=== PATIENT | female | born 1985 | race American Indian/Alaskan Native ===

== ENCOUNTER 2016-12-16 10:42 | Emergency (ER) | payer SELFPAY ==
[2016-12-16 11:28] VITALS: BP 141/101
[2016-12-16 12:16] LABS: Bilirubin,Urine NEG (Negative); Blood,Urine NEG (Negative); Ketones,Urine NEG (Negative); Leukocyte Esterase,Urine NEG (Negative); Mucus,Urine 2+ /HPF; Nitrite,Urine NEG (Negative); Protein,Urine <15 mg/dL mg/dL (Negative); Urobilinogen,Urine < 2.0 mg/dL (<2.0)
[2016-12-16 12:35] LABS: Basophils % (Auto) 0.7 % (0.0-1.8); Hematocrit 35.7 % (30.3-42.9); Hemoglobin 11.8 gm/dl (10.1-14.3); Mean Corpuscular HGB Conc 33 % (30-34); Mean Corpuscular Hemoglobin 30 pg (28-32); Mean Corpuscular Volume 90 fl (79-97); Platelet Count 210 K/mm3 (140-440); Red Blood Count 3.98 M/mm3 (3.65-5.03); Red Cell Distribution Width 14.2 % (13.2-15.2); White Blood Count 4.8 K/mm3 (4.5-11.0)
[2016-12-16 12:39] LABS: Alanine Aminotransferase 17 units/L (7-56); Albumin 4.2 g/dL (3.9-5); Albumin/Globulin Ratio 1.4 %; Alkaline Phosphatase 46 units/L (35-129); Anion Gap 16 mmol/L; BUN/Creatinine Ratio 21.42; Bilirubin,Total 0.3 mg/dL (0.1-1.2); Blood Urea Nitrogen 15 mg/dL (7-17); Calcium 8.7 mg/dL (8.4-10.2); Carbon Dioxide 26 mmol/L (22-30); Chloride 101.7 mmol/L (98-107); Glucose 91 mg/dL (65-100); Lipase 18 units/L (13-60); Potassium 3.6 mmol/L (3.6-5.0); Sodium 140 mmol/L (137-145); Total Protein 7.1 g/dL (6.3-8.2)
== END 2016-12-16 20:15 | disposition left against medical advice (07) ==
LOC: ED 10:42
DX: R10.9 Unspecified abdominal pain (principal); Z53.21 Procedure and treatment not carried out due to patient leaving prior to being seen by health care provider
CPT/HCPCS: 36415; 80053; 81001; 83690; 85025

== ENCOUNTER 2017-10-18 13:27 | Outpatient (CLI) | payer MEDICAID, OTHER ==
[2017-10-18 14:12] VITALS: BP 123/83
[2017-10-18] MEDS ORDERED: LACTATED RINGERS 500 ML IV ONE (16:37)
== END 2017-10-18 18:55 | disposition home or self-care (01) ==
LOC: TRG 13:27
PROVIDERS: ATTEND Obstetrics & Gynecology
DX: O47.1 False labor at or after 37 completed weeks of gestation (principal); Z3A.37 37 weeks gestation of pregnancy
CPT/HCPCS: 59025

== ENCOUNTER 2017-10-28 02:21 | Outpatient (CLI) | payer MEDICAID ==
[2017-10-28 02:35] VITALS: BP 122/73
== END 2017-10-28 03:00 | disposition home or self-care (01) ==
LOC: TRG 02:21
PROVIDERS: ATTEND Obstetrics & Gynecology
DX: O62.9 Abnormality of forces of labor, unspecified (principal); Z3A.38 38 weeks gestation of pregnancy
CPT/HCPCS: 59025

== ENCOUNTER 2017-11-04 01:40 | Outpatient (CLI) | payer MEDICAID ==
[2017-11-04 12:41] VITALS: BP 119/74
== END 2017-11-04 03:48 | disposition home or self-care (01) ==
LOC: TRG 01:40
PROVIDERS: ATTEND Obstetrics & Gynecology
DX: O47.1 False labor at or after 37 completed weeks of gestation (principal); Z3A.39 39 weeks gestation of pregnancy
CPT/HCPCS: 59025

== ENCOUNTER 2017-11-15 04:44 | Inpatient (IN) | payer MEDICAID, OTHER ==
[2017-11-15] MEDS ORDERED: PITOCin/NS 20 UNIT/1000ML DRIP 20,000 MILLIUNITS/1,000 ML BAG IV ONE (04:59)
[2017-11-15] MEDS ORDERED: NORMOSOL-R PH 7.4 1,000 ML IV ONE (04:59)
[2017-11-15] MEDS ORDERED: SUBLIMAZE ONE (05:24)
[2017-11-15] MEDS ORDERED: XYLOCAINE 2% INFILTRATI ONE (05:45)
[2017-11-15] MEDS ORDERED: ePHEDrine SULFATE IV PRN (05:45)
[2017-11-15] MEDS ORDERED: ZOFRAN IV PRN ×2 (05:45→06:13)
[2017-11-15] MEDS ORDERED: SUBLIMAZE IV PRN (05:45)
[2017-11-15] MEDS ORDERED: STADOL IV PRN (05:45)
[2017-11-15] MEDS ORDERED: MINERAL OIL PO PRN (05:45)
[2017-11-15] MEDS ORDERED: BRETHINE IVP PRN (05:45)
[2017-11-15] MEDS ORDERED: BRETHINE SUB-Q PRN (05:45)
[2017-11-15] MEDS ORDERED: NARCAN 0.4 MG/1 ML IV PRN (05:45)
[2017-11-15 05:55] LABS: Mean Corpuscular HGB Conc 33 % (30-34); Mean Corpuscular Hemoglobin 30 pg (28-32); Mean Corpuscular Volume 91 fl (79-97); Platelet Count 201 K/mm3 (140-440); Red Blood Count 3.63 M/mm3 (3.65-5.03); Red Cell Distribution Width 13.8 % (13.2-15.2)
--- NOTE | 2017-11-15 05:55 | History and Physical Report ---
History of Present Illness Date of examination: 11/15/17 Date of admission: 11/15/17 05:06 Chief complaint: Labor History of present illness: Pt is a 31yo BF EDC 11/06/17; EGA 41 2/7 weeks presents to L&D complaining of RUC's q 3-4 mins. She received care at [facility] since 20 weeks and followed by [facility] due to Obesity, course has been unremarkable. records are available and GBS is Negative. Past History Past Medical History: no pertinent history Past Surgical History: no surgical history Social history: no significant social history, - Obstetrical History Expected Date of Delivery: 11/06/17 Actual Gestation: 41 Week(s) 2 Day(s) : 3 Medications and Allergies Allergies Allergy/AdvReac Type Severity Reaction Status Date / Time No Known Allergies Allergy Verified 05/21/14 13:05 Home Medications Medication Instructions Recorded Confirmed Last Taken Type Pnv,Calcium 72/Iron/Folic Acid 1 tab PO DAILY 12/13/15 12/13/15 12/11/15 10:00 History [Pnv Plus Multivit Tab] HYDROcodone/APAP 5-325 [[place] 2 each PO Q6H PRN #10 tablet 12/14/15 Unknown Rx 5-325 mg TAB] Ibuprofen [Motrin 600 MG tab] 600 mg PO Q6H PRN #30 tablet 12/14/15 Unknown Rx Active Meds: Active Medications Butorphanol Tartrate (Stadol) 2 mg IV Q2H PRN PRN Reason: Pain , Severe (7-10) Ephedrine Sulfate (Ephedrine Sulfate) 10 mg IV Q2M PRN PRN Reason: Hypotension Fentanyl (Sublimaze) 100 mcg IV Q2H PRN PRN Reason: Labor Pain Parenteral Electrolytes (Normosol-R Ph 7.4) 1,000 mls @ 125 mls/hr IV DIRECT SANDRA Oxytocin/Sodium Chloride (Pitocin/Ns 20 Unit/1000ml Drip) 20 units in 1,000 mls @ 125 mls/hr IV DIRECT SANDRA Oxytocin/Sodium Chloride (Pitocin/Ns 30 Unit/500ml) 30 units in 500 mls @ 1 mls /hr IV TITR SANDRA; Protocol Lidocaine (Xylocaine 2%) 20 ml INFILTRATI ONCE ONE Stop: 11/15/17 05:46 Mineral Oil (Mineral Oil) 30 ml PO QHS PRN PRN Reason: Constipation Naloxone HCl (Narcan 0.4 Mg/1 Ml) 0.1 mg IV Q2MIN PRN PRN Reason: Res Rate </= 8 or 02 SAT < 92% Ondansetron HCl (Zofran) 4 mg IV Q8H PRN PRN Reason: Nausea And Vomiting Terbutaline Sulfate (Brethine) 0.25 mg SUB-Q ONCE PRN PRN Reason: Hyperstimulation/Hypertonicity Terbutaline Sulfate (Brethine) 0.25 mg IVP ONCE PRN PRN Reason: Hyperstimulation/Hypertonicity Review of Systems All systems: negative - Vital Signs Vital signs: Vital Signs Temp Resp 97.7 F 24 11/15/17 05:33 11/15/17 05:33 Temp Pulse Resp BP Pulse Ox 97.7 F 11/15/17 05:33 11/15/17 05:33 - Physical Exam Breasts: Positive: deferred Cardiovascular: Regular rate Lungs: Positive: Clear to auscultation Abdomen: Positive: normal appearance Genitourinary (Female): Positive: normal external genitalia Vagina: Positive: normal moisture Uterus: Positive: enlarged Extremities: Positive: normal - Obstetrical FHR: category 1 Uterine Contraction Monitor Mode: External Cervical Dilatation: 10 Cervical Effacement Percentage: 100 station: +2 Uterine Contraction Pattern: Regular Uterine Tone Measurement Phase: Contraction Uterine Contraction Intensity: Strong/Firm Results Result Diagrams: 11/15/17 05:35 All other labs normal. Assessment and Plan - Patient Problems (1) 41 weeks gestation of Onset Date: 11/15/17 Current Visit: Yes Status: Acute Plan to address problem: A: IUP @ 41 2/7 weeks in labor P: Admit to L&D for expectant vaginal delivery (2) Active labor at term Onset Date: 11/15/17 Current Visit: No Status: Acute
[2017-11-15] MEDS ORDERED: NORMOSOL-R PH 7.4 1,000 ML IV SCH (06:00)
[2017-11-15] MEDS ORDERED: PITOCin/NS 20 UNIT/1000ML DRIP 20 UNITS/1,000 ML BAG IV SCH ×2 (06:00→07:00)
[2017-11-15] MEDS ORDERED: PITOCin/NS 30 UNIT/500ML 30 UNITS/500 ML BAG IV SCH (06:00)
--- NOTE | 2017-11-15 06:11 | Procedure Note ---
OB Delivery Note - Delivery Date of Delivery: 11/15/17 Surgeon: DILMA CHARLES Estimated blood loss: other (250cc) - Vaginal Delivery presentation: vertex Delivery position: OA Intrapartum events: precipitous labor- <3hr Delivery induction: none Delivery augmentation: rupture of membranes Delivery monitor: external FHT, external uterine Route of delivery: Delivery placenta: spontaneous Delivery cord: nuchal cord, 3 umbilical vessels Episiotomy: none Delivery laceration: none Anesthesia: none Delivery comments: Infant delivered OA and placed on Mom's chest for [id number] bonding and delayed cord clamping - A at 1 minute: 8 at 5 minutes: 9 Infant Gender: Male (3435gms)
[2017-11-15] MEDS ORDERED: BENADRYL PO PRN (06:13)
[2017-11-15] MEDS ORDERED: PHENERGAN PO PRN (06:13)
[2017-11-15] MEDS ORDERED: TUCKS PAD TP PRN (06:13)
[2017-11-15] MEDS ORDERED: TYLENOL PO PRN (06:13)
[2017-11-15] MEDS ORDERED: MILK OF MAGNESIA PO PRN (06:13)
[2017-11-15] MEDS ORDERED: LANSINOH TP PRN (06:13)
[2017-11-15] MEDS ORDERED: PHENERGAN PR PRN (06:13)
[2017-11-15] MEDS ORDERED: DULCOLAX PR PRN (06:13)
[2017-11-15] MEDS ORDERED: SODIUM CHLORIDE FLUSH SYRINGE 10 ML IV PRN (07:00)
[2017-11-15] MEDS: NORCO 5/325 PO PRN ×2 (07:37→21:37)
[2017-11-15] MEDS: MOTRIN PO SCH ×2 (07:39→21:40)
[2017-11-15] MEDS ORDERED: PRENATAL VITAMIN PO SCH (10:00)
[2017-11-15 19:59] LABS: Hematocrit 30.4 % (30.3-42.9); Hemoglobin 9.6 gm/dl (10.1-14.3)
[2017-11-15] MEDS: FEOSOL PO SCH (21:38)
[2017-11-15] MEDS: COLACE PO SCH (21:39)
[2017-11-16] MEDS ORDERED: BOOSTRIX IM ONE (06:00)
[2017-11-16] MEDS ORDERED: M-M-R II VACCINE SUB-Q ONE (06:13)
[2017-11-16] MEDS: MOTRIN PO SCH ×2 (08:22)
--- NOTE | 2017-11-16 08:53 | Progress Note ---
Assessment and Plan - Patient Problems (1) 41 weeks gestation of Onset Date: 11/15/17 Current Visit: Yes Status: Resolved (2) Active labor at term Onset Date: 11/15/17 Current Visit: No Status: Resolved (3) Normal spontaneous vaginal delivery Onset Date: 11/16/17 Current Visit: No Status: Resolved Plan to address problem: A: S/P - PPD #1 Doing well Asymptomatic anemia - stable P: May go home today. Subjective - Subjective Date of service: 11/16/17 Principal diagnosis: s/p - PPD #1 Interval history: Pt is feeling well without complaints. Bleeding improved. Patient reports: appetite normal, voiding normally, pain well controlled, flatus , ambulating normally, no dizzy ambulation [place]: doing well, nursing well Objective - Vital Signs Latest vital signs: Vital Signs Temp Pulse Resp BP BP Pulse Ox 11/16/17 01:20 98.0 F 98 H 20 109/66 97 11/15/17 16:30 98.3 F 80 20 113/70 97 11/15/17 13:09 97.7 F 69 18 118/78 98 11/15/17 09:00 98.3 F 79 109/61 Intake and Output 11/15/17 11/16/17 11/16/17 22:59 06:59 14:59 Intake Total 840 480 Balance 840 480 Intake: Oral 360 480 Intake, Free Water 480 Other: Total, Intake Amount 360 240 # Voids Void 1 1 - Exam Breasts: Present: deferred Cardiovascular: Present: Regular rate, Other Abdomen: Present: normal appearance, soft Uterus: Present: normal, firm, fundal height below umbilicus Extremities: Present: normal - Labs Labs: Abnormal lab results 11/15/17 Range/Units 19:31 Hgb 9.6 L (10.1-14.3) gm/dl Laboratory Tests 11/15/17 11/15/17 11/15/17 05:35 05:35 05:35 WBC 6.9 RBC 3.63 L Hgb 11.0 Hct 33.0 MCV 91 MCH 30 MCHC 33 RDW 13.8 Plt Count 201 RPR Nonreactive Blood Type A POSITIVE Antibody Screen Negative 11/15/17 19:31 WBC RBC Hgb 9.6 L Hct 30.4 MCV MCH MCHC RDW Plt Count RPR Blood Type Antibody Screen
--- NOTE | 2017-11-16 09:01 | Discharge Summary ---
Providers - Providers Date of Admission: 11/15/17 05:06 Date of discharge: 11/16/17 Attending physician: DILMA CHARLES Primary care physician: DILMA CHARLES Hospitalization Reason for admission: active labor, IUP at term Delivery: Episiotomy: none Laceration: none Other procedures: none complications: none Discharge diagnosis: IUP at term delivered [place] baby: male Hospital course: Unremarkable. Condition at discharge: Good Disposition: DC-01 TO HOME OR SELFCARE - Discharge Diagnoses (1) 41 weeks gestation of Status: Resolved (2) Active labor at term Status: Resolved (3) Normal spontaneous vaginal delivery Status: Resolved Plan - Discharge Medications Prescriptions: Ferrous Sulfate [Feosol 325 MG tab] 325 mg PO BID #60 tablet Ibuprofen [Motrin 600 MG tab] 600 mg PO Q6HR #30 tablet Vit-Fe Fumar-FA [ Vitamin] 1 each PO QDAY #30 tablet - Provider Discharge Summary Activity: routine, no sex for 6 weeks, no heavy lifting 4 weeks, no strenuous exercise Diet: routine Instructions: routine Additional instructions: [] Smoking cessation referral if applicable(refer to patient education folder for contact #) [] Refer to [facility]'s [facility] Booklet Call your doctor immediately for: * Fever > 100.5 * Heavy vaginal bleeding ( >1 pad per hour) * Severe persistent headache * Shortness of breath * Reddened, hot, painful area to leg or breast * Drainage or odor from incision. * Keep incision clean and dry at all times and follow doctor's instructions regarding bathing/showering - Follow up plan Follow up: DILMA CHARLES MD [Primary Care Provider] - 6 Weeks
[2017-11-16] MEDS: NORCO 5/325 PO PRN (11:00)
[2017-11-16] MEDS: COLACE PO SCH (11:01)
[2017-11-16] MEDS: FEOSOL PO SCH (11:01)
[2017-11-16 11:20] VITALS: BP 117/77
== END 2017-11-16 13:30 | disposition home or self-care (01) | DRG 775 ==
LOC: TRG 04:44 → LD 05:06 → TRG 05:06 → OB 08:24
PROVIDERS: ADMIT Obstetrics & Gynecology; ATTEND Obstetrics & Gynecology
PROC: 10E0XZZ Delivery of Products of Conception, External Approach (ICD-10-PCS; principal; 2017-11-15)
DX: O62.3 Precipitate labor (principal); O99.214 Obesity complicating childbirth; E66.9 Obesity, unspecified; Z68.37 Body mass index [BMI] 37.0-37.9, adult; O69.81X0 Labor and delivery complicated by cord around neck, without compression, not applicable or unspecified; Z3A.41 41 weeks gestation of pregnancy; Z37.0 Single live birth; O90.81 Anemia of the puerperium; D64.9 Anemia, unspecified
CPT/HCPCS: 36415; 85014; 85018; 85027; 86592; 86850; 86900; 86901; 90707; 99211; G0463; J2590; J3010

== ENCOUNTER 2018-02-14 08:27 | Day surgery (SDC) | payer MEDICAID ==
[~2018-02-14 08:27] MED LIST: DECADRON ONE; DIPRIVAN 10 MG/ML IV ONE; MARCAINE 0.5% 0 ML INFILTRATI ONE; QUELICIN ONE; SUBLIMAZE ONE; TORADOL ONE; ZEMURON IV ONE; ZOFRAN ONE
--- NOTE | 2018-02-14 08:42 | Short Stay Summary ---
Short Stay Documentation Date of service: 02/14/18 Narrative H&P: Pt is a 32yo BF LMP 02/01/18 presents for permanent sterilization - History Principal diagnosis: Desires permanent sterilization H&P: obtained from office Past Medical History: No medical history Past Surgical History: No surgical history Social history: no significant social history, - Allergies and Medications Current Medications: Allergies No Known Allergies Allergy (Verified 05/21/14 13:05) Home Medications Medication Instructions Recorded Confirmed Last Taken Type Pnv,Calcium 72/Iron/Folic Acid 1 tab PO DAILY 12/13/15 11/16/17 12/11/15 10:00 History [Pnv Plus Multivit Tab] HYDROcodone/APAP 5-325 [[place] 2 each PO Q6H PRN #10 tablet 12/14/15 11/16/17 Unknown Rx 5-325 mg TAB] Ibuprofen [Motrin 600 MG tab] 600 mg PO Q6H PRN #30 tablet 12/14/15 11/16/17 Unknown Rx Ferrous Sulfate [Feosol 325 MG tab] 325 mg PO BID #60 tablet 11/16/17 Unknown Rx Ibuprofen [Motrin 600 MG tab] 600 mg PO Q6HR #30 tablet 11/16/17 Unknown Rx Vit-Fe Fumar-FA [ 1 each PO QDAY #30 tablet 11/16/17 Unknown Rx Vitamin] Active Medications Cefazolin Sodium (Ancef/Sterile Water 2 Gm/20 Ml) 2 gm in 20 mls @ 80 mls/hr IV PREOP NR; Protocol Lactated Ringer's (Lactated Ringers) 1,000 mls @ 125 mls/hr IV DIRECT SANDRA - Physical exam General appearance: no acute distress Integumentary: no rash HEENT: Atraumatic Lungs: Clear to auscultation Breasts: deferred Heart: Regular rate Gastrointestinal: normal Female Genitourinary: deferred Rectal Exam: deferred Extremities: no ischemia Neurological: Normal gait, Normal speech - Brief post op/procedure progress note Date of procedure: 02/14/18 Pre-op diagnosis: Desires permanent sterilization Post-op diagnosis: same Procedure: Laproscopic Bilateral Tubal Ligation Anesthesia: GETA Findings: Normal uterus. Normal tubes and ovaries bilaterally. Surgeon: DILMA CHARLES Estimated blood loss: minimal Pathology: none Condition: stable - Hospital course Hospital course: Unremarkable. - Disposition Condition at discharge: Good Disposition: DC-01 TO HOME OR SELFCARE - Discharge Diagnoses (1) Encounter for sterilization Status: Resolved Short Stay Discharge Plan Activity: no restrictions Diet: regular Wound: open to air, keep clean and dry Follow up with: DILMA CHARLES MD [Primary Care Provider] - 14 Days Prescriptions: HYDROcodone/APAP 5-325 [[place] 5/325] 1 each PO Q6HR PRN #20 tablet PRN Reason: Pain
[2018-02-14] MEDS ORDERED: ANCEF/STERILE WATER 2 GM/20 ML 2 GM/20 ML SYRINGE IV NR (09:00)
[2018-02-14] MEDS ORDERED: LACTATED RINGERS 1,000 ML IV SCH (09:00)
[2018-02-14 10:10] LABS: Hematocrit 33.3 % (30.3-42.9)
--- NOTE | 2018-02-14 10:10 | Anesthesia Consultation ---
Anesthesia Consult and Med Hx Date of service: 02/14/18 - Airway Anesthetic Teeth Evaluation: Chipped ROM Head & Neck: Adequate Mental/Hyoid Distance: Adequate Mallampati Class: Class II Intubation Access Assessment: Good - Pulmonary Exam CTA: Yes - Cardiac Exam Cardiac Exam: No Murmur - Pre-Operative Health Status ASA Pre-Surgery Classification: ASA1 Proposed Anesthetic Plan: General - Pulmonary Hx Smoking: No Hx Asthma: No COPD: No Hx Pneumonia: No - Cardiovascular System Hx Hypertension: No - Central Nervous System Hx Seizures: No Hx Psychiatric Problems: No - Gastrointestinal Hx Gastroesophageal Reflux Disease: Yes - Endocrine Hx Renal Disease: No Hx End Stage Renal Disease: No Hx Hypothyroidism: No Hx Hyperthyroidism: No - Hematic Hx Anemia: No Hx Sickle Cell Disease: No - Other Systems Hx Alcohol Use: No
--- NOTE | 2018-02-14 10:10 | Anesthesia Day of Surgery ---
Anesthesia Day of Surgery - Day of Surgery Patient Examined: Yes Patient H&P Reviewed: Yes Patient is NPO: Yes
[2018-02-14] MEDS ORDERED: PEPCID IV NR (10:15)
[2018-02-14] MEDS ORDERED: VERSED IV PRN (10:15)
[2018-02-14] MEDS ORDERED: DILAUDID IV PRN (10:30)
[2018-02-14] MEDS ORDERED: ZOFRAN IV PRN (10:30)
[2018-02-14] MEDS ORDERED: NARCAN 0.4 MG/1 ML IV PRN (10:30)
[2018-02-14] MEDS ORDERED: DEMEROL IV PRN (10:30)
[2018-02-14] MEDS ORDERED: ZOFRAN ONE (10:40)
[2018-02-14] MEDS ORDERED: DECADRON ONE (10:40)
[2018-02-14] MEDS ORDERED: BLOXIVERZ ONE (10:41)
[2018-02-14] MEDS ORDERED: ROBINUL ONE (10:41)
[2018-02-14] MEDS ORDERED: MARCAINE 0.5% INFILTRATI ONE (10:55)
[2018-02-14] MEDS ORDERED: ZOFRAN IV NR (11:00)
[2018-02-14] MEDS ORDERED: NEURONTIN PO NR (11:00)
--- NOTE | 2018-02-14 11:14 | Operative Report ---
Operative Report Operative Report: PREOPERATIVE DIAGNOSIS: Desires permanent sterilization POSTOPERATIVE DIAGNOSIS: Same OPERATIVE PROCEDURE: Laparoscopic bilateral tubal ligation. SURGEON: Santosh Hodge MD ANESTHESIA: Gen. endotracheal intubation ANESTHESIOLOGIST: Dr. Blair ESTIMATED BLOOD LOSS: 10 mL's FINDINGS: Normal uterus. Normal tubes and ovaries bilaterally. COMPLICATIONS: None COUNTS: Correct x3. PROCEDURE: After the patient was correctly identified and after general anesthesia was administered, the patient was prepped and draped in usual sterile fashion and placed in dorsal lithotomy position. First, the bladder was emptied using a straight catheter. Next, a speculum was placed in the vaginal vault and the anterior lip of the cervix was grasped using a single- tooth tenaculum. The uterine manipulator was then placed and the tenaculum and speculum were removed. Attention was then turned to the abdomen where first a periumbilical incision was made using a skin knife, and the Optiview trocar was inserted under direct visualization. After an adequate amount of abdominal insufflation, visualization of the pelvic organs found the uterus to be normal, and the tubes and ovaries to be normal bilaterally. Next, the left fallopian tube was grasped using the Kleppingers, and after identifying the fimbriated end of the left tube, this tube was cauterized in 3 continuous [address] along the proximal portion of the left tube. The same procedure was performed on the right fallopian tube after first identifying the fimbriated end of the right tube. This tube was also cauterized in 3 continuous places along the proximal portion of the right tube. At this point, the procedure was then considered complete. All instruments were removed from the abdomen. The abdomen was deflated and the periumbilical incision was closed using 0 Vicryl suture in a [id number] configuration on the fascia, followed by 4-0 Monocryl suture in subcuticular fashion on the skin. The incision was also infiltrated using 0.5% Marcaine solution. The uterine manipulator was removed. The patient tolerated the procedure well and was transferred to recovery room stable condition.
[2018-02-14] MEDS ORDERED: NORCO 5/325 PO PRN (11:32)
[2018-02-14 12:11] VITALS: BP 125/83
--- NOTE | 2018-02-14 14:49 | Post Anesthesia Evaluation ---
- Post Anesthesia Evaluation Patient Participated: Yes Airway Patent: Yes Stable Respiratory Function: Yes Nausea/Vomiting: No Temp > 96.8F: Yes Pain Manageable: Yes Adequeate Hydration: Yes Anesthesia Complications: No Block Receding Appropriately: Not Applicable Patient on Ventilator: No
== END 2018-02-14 12:45 | disposition home or self-care (01) ==
LOC: OR 08:27
PROVIDERS: ATTEND Obstetrics & Gynecology
DX: Z30.2 Encounter for sterilization (principal); K21.9 Gastro-esophageal reflux disease without esophagitis; Z79.899 Other long term (current) drug therapy
CPT/HCPCS: 36415; 58670; 81025; 85014; 85018; J0330; J0690; J1100; J1885; J2175; J2250; J2405; J2704; J2710; J3010; J7120